=== PATIENT | female | born 1965 | race Caucasian/White ===

== ENCOUNTER 2019-09-03 08:38 | Inpatient (IN) | payer MEDICAID ==
[~2019-09-03] VITALS: Ht 160 cm; Wt 63.6 kg
[2019-09-03] MEDS ORDERED: AMIT10TA6 PO (08:54)
[2019-09-03 11:40] LABS: BASOPHILS % (AUTO) 0.6 % (0.0-2.0); EOSINOPHILS % (AUTO) 2.8 % (1.0-6.0); HEMATOCRIT 39.1 % (36-46); HEMOGLOBIN 12.7 g/dL (12.0-16.0); LYMPHOCYTES # (AUTO) 1.8 K/uL (1.0-4.8); LYMPHOCYTES % (AUTO) 21.8 % (22.0-44.0); MEAN CORPUSCULAR HGB CONC 32.4 G/dL (31.0-37.0); MEAN CORPUSCULAR VOLUME 80 fL (80-100); MONOCYTES # (AUTO) 0.7 K/uL (0.1-1.0); MONOCYTES % (AUTO) 8.4 % (2.0-9.0); NEUTROPHILS # (AUTO) 5.6 K/uL (1.8-7.7); NEUTROPHILS % (AUTO) 66.4 % (40.0-70.0); PLATELET COUNT (AUTO) 154 K/uL (150-450); RED BLOOD CELL COUNT(AUTO) 4.88 MIL/uL (4.00-5.20); RED CELL DISTRIBUTION WIDTH 15.1 % (11.5-14.5)
[2019-09-03 11:49] LABS: ANION GAP 6 mmol/L (8-16); CALCIUM, TOTAL 8.9 mg/dL (8.8-10.5); CARBON DIOXIDE 31 mmol/L (22-29); CHLORIDE 101 mmol/L (98-107); CREATININE 0.66 mg/dL (0.60-1.30); GLOMERULAR FILTR. RATE CALC > 60 mL/min (>60); GLUCOSE,RANDOM 93 mg/dL (70-110); POTASSIUM 3.8 mmol/L (3.5-5.1); SODIUM SERUM 138 mmol/L (136-145); UREA NITROGEN, BLOOD 10 mg/dL (7-18)
[2019-09-03 12:02] LABS: ALANINE AMINOTRANSFERASE 18 U/L (12-78); ALBUMIN 3.3 g/dL (3.4-5.0); ALKALINE PHOSPHATASE 71 U/L (46-116); ASPARTATE AMINOTRANSFERASE 17 U/L (15-37); BILIRUBIN,TOTAL 0.3 mg/dL (0.1-1.0); TOTAL PROTEIN, SERUM 7.3 g/dL (6.4-8.2)
[2019-09-03] MEDS ORDERED: IOVERSOL 350 MG/ML 150 ML VIAL ONE (13:12)
[2019-09-03] MEDS ORDERED: SODIUM CHLORIDE 0.9% 0 ML ONE (13:13)
[2019-09-03] MEDS ORDERED: DiphenhydrAMINE HCL 50 MG/ML VIAL IVP STA (13:19)
[2019-09-03] MEDS ORDERED: SODIUM CHLORIDE 0.9% 100 ML ONE (13:20)
[2019-09-03] MEDS ORDERED: METOCLOPRAMIDE HCL 5 MG/ML 2 ML VIAL IVP ONE (13:30)
[2019-09-03] MEDS ORDERED: ACETAMINOPHEN 500 MG TABLET PO ONE (13:30)
[2019-09-03] MEDS ORDERED: ACETAMINOPHEN 325 MG TABLET PO PRN ×2 (16:00→21:30)
[2019-09-03] MEDS ORDERED: ASPIRIN 325 MG TABLET PO ONE (16:00)
[2019-09-03] MEDS ORDERED: ONDANSETRON HCL 4 MG/2 ML VIAL IVP PRN ×2 (16:00→21:30)
[2019-09-03] MEDS ORDERED: 0.9% SODIUM CHLORIDE 10 ML SYRINGE IVP PRN ×2 (16:00→21:30)
[2019-09-03] MEDS ORDERED: IOVERSOL 350 MG/ML 100 ML VIAL ONE (16:27)
[2019-09-03 17:50] VITALS: BP 129/69
[2019-09-03 20:53] VITALS: BP 117/64
[2019-09-03] MEDS ORDERED: ZOLPIDEM TARTRATE 5 MG TABLET PO PRN (21:30)
[2019-09-03] MEDS: PredniSONE 20 MG TABLET PO SCH (22:28)
[2019-09-03] MEDS: CarBAMazepine 100 MG CHEWABLE TABLET PO SCH (22:29)
[2019-09-03 23:25] VITALS: BP 106/72
[2019-09-04 05:15] VITALS: BP 111/60
[2019-09-04 07:26] LABS: BASOPHILS % (AUTO) 0.3 % (0.0-2.0); EOSINOPHILS % (AUTO) 0 % (1.0-6.0); HEMATOCRIT 39.8 % (36-46); HEMOGLOBIN 13.1 g/dL (12.0-16.0); LYMPHOCYTES # (AUTO) 0.7 K/uL (1.0-4.8); LYMPHOCYTES % (AUTO) 8.2 % (22.0-44.0); MEAN CORPUSCULAR HEMOGLOBIN 26.1 pg (26.0-34.0); MEAN CORPUSCULAR HGB CONC 32.8 G/dL (31.0-37.0); MEAN CORPUSCULAR VOLUME 80 fL (80-100); MONOCYTES # (AUTO) 0.1 K/uL (0.1-1.0); MONOCYTES % (AUTO) 1.5 % (2.0-9.0); NEUTROPHILS # (AUTO) 7.7 K/uL (1.8-7.7); PLATELET COUNT (AUTO) 130 K/uL (150-450)
[2019-09-04 07:41] LABS: ANION GAP 8 mmol/L (8-16); CALCIUM, TOTAL 8.7 mg/dL (8.8-10.5); CARBON DIOXIDE 29 mmol/L (22-29); CHLORIDE 100 mmol/L (98-107); CREATININE 0.76 mg/dL (0.60-1.30); GLOMERULAR FILTR. RATE CALC > 60 mL/min (>60); GLUCOSE,RANDOM 123 mg/dL (70-110); POTASSIUM 4.2 mmol/L (3.5-5.1); SODIUM SERUM 137 mmol/L (136-145); UREA NITROGEN, BLOOD 13 mg/dL (7-18)
[2019-09-04 08:28] VITALS: BP 120/76
[2019-09-04] MEDS: PredniSONE 20 MG TABLET PO SCH (08:29)
[2019-09-04] MEDS: CarBAMazepine 100 MG CHEWABLE TABLET PO SCH (08:31)
[2019-09-04] MEDS ORDERED: DOCUSATE SODIUM 100 MG CAPSULE PO SCH (09:00)
[2019-09-04] MEDS ORDERED: PANTOPRAZOLE SODIUM 40 MG DR TABLET PO SCH (09:00)
[2019-09-04] MEDS ORDERED: GADOBUTROL 1 MMOL/ML 10 ML VIAL IVP ONE (09:13)
[2019-09-04 11:47] VITALS: BP 130/70
[2019-09-04] MEDS ORDERED: ASPIRIN 81 MG CHEWABLE TABLET PO SCH (13:45)
[2019-09-04] MEDS ORDERED: PRED20 PO (14:01)
[2019-09-04 15:49] VITALS: BP 118/67
== END 2019-09-04 16:43 | disposition home or self-care (01) | DRG 48 ==
LOC: EMS 08:39 → 4E 16:52
PROVIDERS: ADMIT Internal Medicine; ATTEND Internal Medicine
DX: H49.01 Third [oculomotor] nerve palsy, right eye (principal); I67.1 Cerebral aneurysm, nonruptured; G83.9 Paralytic syndrome, unspecified; F32.9 Major depressive disorder, single episode, unspecified; G43.909 Migraine, unspecified, not intractable, without status migrainosus; I10 Essential (primary) hypertension; H02.401 Unspecified ptosis of right eyelid; H53.2 Diplopia; R73.03 Prediabetes; M54.2 Cervicalgia; Z79.899 Other long term (current) drug therapy
CPT/HCPCS: 70470; 70491; 70496; 70551; 70552; 83735; A9585; G0378; J1200; J2765; J7050